=== PATIENT | female | born 1960 | race Caucasian/White ===

== ENCOUNTER 2017-11-25 17:31 | Emergency (ER) | payer BC, OTHER ==
[2017-11-25 18:23] VITALS: BP 135/59
--- NOTE | 2017-11-25 19:10 | UC ---
Bite Injury/Animal HPI - HPI Summary HPI Summary: pt presents with a tick on her left leg. Unknown when attached - thinks < 24 hours. + itching Pt did not try to remove does not know if alive tdap UTD No h/o lyme - History of Current Complaint Chief Complaint: OLVINkin Stated Complaint: TICK-LEFT LEG Time Seen by Provider: 11/25/17 19:08 Hx Obtained From: Patient Hx Last Menstrual Period: UTERINE ABLATION 7 YEARS AGO Severity Currently: None Severity Initially: Mild Pain Intensity: 3 Pain Scale Used: 0-10 Numeric - Allergies/Home Medications Allergies/Adverse Reactions: Allergies Allergy/AdvReac Type Severity Reaction Status Date / Time No Known Allergies Allergy Verified 11/25/17 18:23 PMH/Surg Hx/FS Hx/Imm Hx Previously Healthy: Yes - Surgical History Surgical History: Yes Surgery Procedure, Year, and Place: uterine ablation 2007. TONSILLECTOMY. LEFT BREAST BX. L knee - Social History Occupation: Employed Full-time Lives: With Family Alcohol Use: Rare Substance Use Type: None Smoking Status (MU): Light Every Day Tobacco Smoker Type: Cigarettes Amount Used/How Often: 8 CIGS PER DAY Length of Time of Smoking/Using Tobacco: since age 18 Have You Smoked in the Last Year: Yes Review of Systems Constitutional: Negative Skin: Other - tick LLE All Other Systems Reviewed And Are Negative: Yes Physical Exam Triage Information Reviewed: Yes Appearance: Well-Appearing, No Pain Distress, Well-Nourished Vital Signs: Initial Vital Signs Temp 98.7 F 11/25/17 18:11 Pulse 76 11/25/17 18:11 Resp 16 11/25/17 18:11 BP 135/59 11/25/17 18:11 Pulse Ox 98 11/25/17 18:11 Vital Signs Reviewed: Yes Eyes: Positive: Conjunctiva Clear ENT: Positive: Hearing grossly normal Neck: Positive: Supple Respiratory: Positive: No respiratory distress, No accessory muscle use Cardiovascular: Positive: RRR, No Murmur Musculoskeletal Exam: Normal Musculoskeletal: Positive: Strength Intact Neurological Exam: Normal Neurological: Positive: Alert Psychological Exam: Normal Skin: Positive: Other - tick to LLE - prox, lat thigh removed with tick twister intact without apparent retained parts Bite Injury Course/Dx - Course Course Of Treatment: Pt presents with tick to LLE. removed without difficult. d/w pt CDC recommendations - pt requesting prophylaxis. will give 1 time dose. return precautions discussed. pt comfortable and in agreement with plan - Differential Dx/Diagnosis Provider Diagnoses: tick bite, removal Discharge - Sign-Out/Discharge Documenting (check all that apply): Discharge/Admit/Transfer - Discharge Plan Condition: Stable Disposition: HOME Patient Education Materials: Tick Bite (ED) Referrals: Mirella Mccallum PA [Primary Care Provider] - Additional Instructions: Keep area clean and dry Check yourself daily for ticks after you have been working in the [facility] Contact your doctor or return with questions or concerns Approach to prophylaxis : According to the Infectious Diseases Society of [place] (IDSA) guidelines that recommend antibiotic prophylaxis only in patients who meet all of the following criteria: 1. Attached tick identified as an adult or nymphal I. scapularis tick (deer tick). 2. Tick is estimated to have been attached for 36 hours (by degree of engorgement or time of exposure). 3. Prophylaxis is begun within 72 hours of tick removal. If you experience a tick and time of attachment is believed to be less than 36 hours, you may remove the tick with head intact and no need for prophylaxis. If over 36 hours, please come into UC. After discussion of these guidelines, you elected to have the one time treatment - this was given to you at urgent care today contact your doctor or return with any questions or concerns - Billing Disposition and Condition Condition: STABLE Disposition: HOME
[2017-11-25] MEDS ORDERED: DOXYcycline CAP(*) 100 MG PO ONE (19:19)
== END 2017-11-25 19:28 | disposition home or self-care (01) ==
LOC: UCCORT 17:31
DX: S80.862A Insect bite (nonvenomous), left lower leg, initial encounter (principal); W57.XXXA Bitten or stung by nonvenomous insect and other nonvenomous arthropods, initial encounter; Y92.9 Unspecified place or not applicable
CPT/HCPCS: 99212; A9270-GY; G0463

== ENCOUNTER 2018-11-13 10:20 | Day surgery (SDC) | payer BC ==
[~2018-11-13 10:20] MED LIST: Buffered Lidocaine 1% SYRIN* 1 ML/SYRINGE INTRADERM ONE; Famotidine IV* 10 MG/ML 2 ML (20 mg) IV ONE; Lactated Ringers 1000 ML Bag* 1,000 ML IV SCH
[2018-11-13] MEDS ORDERED: Dexamethasone IV* 4 MG/ML 1 ML (4 MG) ONE (10:28)
[2018-11-13] MEDS ORDERED: Famotidine IV* 10 MG/ML 2 ML (20 mg) ONE (10:28)
[2018-11-13] MEDS: Dexamethasone IV* 4 MG/ML 1 ML (4 MG) IV SLOW PU ONE (10:53)
[2018-11-13] MEDS ORDERED: Propofol* 10 MG/ML 20 ML BTL ONE (11:08)
[2018-11-13] MEDS ORDERED: Ondansetron INJ* 2 MG/ML VIAL ONE (11:08)
[2018-11-13] MEDS ORDERED: Midazolam* 1 MG/ML 5 ML VIAL (5 MG) ONE (11:08)
[2018-11-13] MEDS ORDERED: fentaNYL* 50 MCG/ML 2 ML VIAL (100 MCG VIAL) ONE (11:08)
[2018-11-13] MEDS ORDERED: Ketorolac INJ* 30 MG/ML 1 ML VIAL ONE (11:08)
[2018-11-13] MEDS ORDERED: Lidocaine 2% PF * 5 ML VIAL ONE (11:08)
[2018-11-13] MEDS ORDERED: Bupivacaine 0.25% SDV PF* 10 ML VIAL INJ ONE (11:52)
[2018-11-13] MEDS ORDERED: oxyCODONE/Acetamin 5/325 MG* TAB PO PRN (12:17)
[2018-11-13] MEDS ORDERED: Naloxone* 0.4 MG/ML 1 ML VIAL IV PRN (12:17)
[2018-11-13] MEDS ORDERED: Ondansetron INJ* 2 MG/ML VIAL IV PRN (12:17)
[2018-11-13 14:32] VITALS: BP 135/46
--- NOTE | 2018-11-13 22:42 | OP ---
DATE OF OPERATION: 11/13/18 [facility] DATE OF : 62 SURGEON: Michael Judge MD SYSTEMS MGR: None. ANESTHESIOLOGIST: Dr. Hardin. ANESTHESIA: Local MAC. PRE-OP DIAGNOSIS: Right trigger thumb with tendon sheath nodule. POST-OP DIAGNOSIS: Right trigger thumb with tendon sheath nodule. OPERATIVE PROCEDURE: 1. Excision of right tendon sheath A1 paolo nodular tenosynovitis. 2. Release of A1 paolo, right trigger thumb. INDICATIONS: Anjum has a very severe trigger thumb, it was locked and she was unable to bend the IP joint for a long time. It has been loosening up a little bit. We had talked to her about the risks and benefits. She wanted to proceed with the trigger thumb release and see if we could excise that nodule. ESTIMATED BLOOD LOSS: 2 mL COMPLICATIONS: None. FINDINGS: See above and below. DESCRIPTION OF PROCEDURE: Anjum was seen in the preoperative holding area. The correct side, site, and procedure were identified. We came back to the operating room where the arm was prepped and draped in the usual fashion and time-out was performed. I had infiltrated 0.25% Marcaine around the operative area. I made a 1 cm transverse incision in the MP joint flexion crease. Dissection was carried out bluntly with the tenotomy scissors and the radial and ulnar digital nerves were identified and retracted out of the way. With the Ragnell retractors in place, I was able to identify the large nodule in the A1 paolo. This was excised with the tenotomy scissors and handed off as a specimen. I then released the entirety of the A1 paolo and completed the release proximally and distally with the tenotomy scissors. I had her flex and extend the IP joint multiple times as she was awake enough to do that and so she could not induce any more triggering. I therefore irrigated out the wound. Skin was closed with 4-0 nylon suture. Soft dressings were applied and she was then taken to the recovery room in stable condition. [id number]/CPS #: [id number] [facility]PITALIvone
== END 2018-11-13 13:28 | disposition home or self-care (01) ==
LOC: OREAST 10:20
PROVIDERS: ATTEND Orthopaedic Surgery Hand Surgery
DX: M65.311 Trigger thumb, right thumb (principal); M65.841 Other synovitis and tenosynovitis, right hand; Z72.0 Tobacco use; K21.9 Gastro-esophageal reflux disease without esophagitis; F32.9 Major depressive disorder, single episode, unspecified
CPT/HCPCS: 88304; J1100; J1885; J2250; J2405; J2704; J3010; J3490